=== PATIENT | female | born 1960 | race Two or more races ===

== ENCOUNTER 2024-08-04 12:03 | Inpatient (IN) | payer MEDICAID, OTHER ==
[~2024-08-04] VITALS: Ht 152.4 cm; Wt 67.2 kg
[~2024-08-04 12:03] MED LIST: BENA10TA90 PO; BUPR100T16 PO; CIPR500T4 PO; CLOP75TA70 PO; HYDR-1917 PO; HYDR25TA4 PO; OMEP20TA44 PO; SIMV20TA20 PO; SUCR1TAB31 PO
--- NOTE | 2024-08-04 12:23 | ECG ---
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
--- NOTE | 2024-08-04 12:25 | ED.PDOC ---
HPI (NEURO) HPI Comments HPI: Initial Vital Signs: Temp : BP: 179/92 HR: 61 RR: 16 SpO2: 99% Past Medical History: HTN, HLD, CVA, TIA Past Surgical History: Appendectomy, Tonsillectomy, Hysterectomy Social History: Occasional ETOH use. Denies smoking or drug use. Medications: Plavix, HTN medication Allergies: NKDA HPI: Poor Historian. 63-year-old female presents to emergency depart for evaluation left upper extremity numbness and tingling that became left upper extremity heaviness with the associated left shoulder left neck jaw area numbness. Onset of symptoms at 11:00 a.m. today. Patient states similar symptoms with previous strokes. She took her dose of Plavix this morning. Denies any recent fall or trauma. She took her blood pressure medications as well. Patient was slightly hypertensive here in the ED. REVIEW OF SYSTEMS: CONSTITUTIONAL: Denies acute: fever, diaphoresis, chills, generalized weakness. HEAD: Denies acute: headache, photophobia Eyes: Denies acute: Double vision, vision loss, eye pain, eye discharge. EARS: Denies acute: tinnitus, hearing loss, ear discharge, ear pain, THROAT: Denies acute: sore throat, swelling, difficulty swallowing , pain with swallowing, change in voice. NECK: Denies acute: neck pain, neck swelling, stiff neck. HEART: Denies acute : palpitations, LUNGS: Denies acute: SOB, wheezing, cough, hemoptysis ABDOMEN: Denies acute: abdominal pain, Nausea, Vomiting, diarrhea, melena , hematemesis, hematochezia SKIN: Denies acute: rash, redness, lesions, itchiness. EXTREMITIES: Denies acute: calf pain, Denies acute: Low back pain. Neuro: Denies acute: tremors, seizure like activity, confusion, dizziness, change in mental status, loss of bowel or bladder function, cauda equina like symptoms. : Denies acute: dysuria, hematuria, flank pain, increase in urinary frequency. PSYCH: Denies acute: hallucination, suicidal ideation, homicidal ideation. FEMALE: Denies acute: abnormal vaginal bleeding, foul odor, unusual discharge. PHYSICAL EXAM: General: no acute distress, awake and alert. Head: normocephalic, atraumatic. Neck: supple, trachea is midline, no swelling. Throat: Normal phonation. Eyes:, no erythema, no purulent discharge, no proptosis, no icterus. Heart: regular rate, regular rhythm, no significant murmur appreciated. Lungs: no apparent respiratory distress, Able to speak in full sentences. No wheezing, no rhonchi, no crackles. No stridors Clear to auscultation bilaterally. Abdomen: non tender to palpation, non distended, soft, no guarding, no rebound, + bowel sounds. Neuro: Awake, Alert, oriented to name, self, situation, follows commands GCS=15. Speech is normal. Skin: no petechia, no purpura, no cyanosis, non-pale, not jaundice. Lower extremities: --no - Pitting edema no deformity, no focal swelling, no calf TTP. Makes eye contact. moves all four extremities. Face: no apparent facial droop. Ears: Normal appearing TM b/l, Stroke: finger to nose cerebellar is sluggish on the left upper extremity. No pronator drift. 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 No nuchal rigidity, Kernig's sign, Brudzinski's sign, no meningeal signs. ED COURSE: Chief Complaint: Left Sided Weakness Time Seen by MD: 12:24 Reviewed Notes: Medications, Allergies Information Source: Patient Mode of Arrival: Ambulatory Was a procedure done? Was a procedure done?: No Differential Diagnosis (SZ) Seizure: N/A CVA: Other (Stroke: DDX include TIA, TGA, CVA, intracranial bleed/mass/infection, cerebellar ischemia/infarct, carotid stenosis, lacunar infarct, vertebral/carotid artery dissection,, vertebrobasillary insufficiency, BPV, encephalopathy, electrolyte abnormality, thyroid disease, hydrocephalus, [place] palsy, multiple sclerosis, hypoglycemia, drug toxicity, cardiac arrhythmia, todds paralysis, seizure.) X-Ray, Labs, Meds, VS Vital Signs Date Time Temp Pulse Resp B/P (MAP) Pulse Ox O2 Delivery O2 Flow Rate FiO2 08/04/24 12:35 98.0 68 12 160/86 (110) 97 98.0 08/04/24 12:35 68 12 97 Room Air* 0 21 08/04/24 12:23 98.1 61 16 179/92 (121) 99 08/04/24 12:16 70 Lab Test 08/04/24 14:16 08/04/24 12:49 08/04/24 12:20 Range/Units Troponin I High Sensitivity Pending < 3 L </=34 ng/L White Blood Count 6.2 4.4-10.8 10^3/uL Red Blood Count 4.86 4.0-5.20 10^6/uL Hemoglobin 15.1 12.2-16.2 g/dL Hematocrit 44.1 36.0-46.0 % Mean Corpuscular Volume 90.8 80.0-100.0 fL Mean Corpuscular Hemoglobin 31.1 28.0-32.0 pg Mean Corpuscular Hemoglobin Concent 34.2 32.0-36.0 g/dL Red Cell Distribution Width 13.3 11.8-14.3 % Platelet Count 253 140-450 10^3/uL Mean Platelet Volume 8.7 6.9-10.8 fL Neutrophils (%) (Auto) 58.3 37.0-80.0 % Lymphocytes (%) (Auto) 31.8 10.0-50.0 % Monocytes (%) (Auto) 7.4 0.0-12.0 % Eosinophils (%) (Auto) 1.7 0.0-7.0 % Basophils (%) (Auto) 0.8 0.0-2.0 % Neutrophils # (Auto) 3.6 1.6-8.6 10 ^3/uL Lymphocytes # (Auto) 2.0 0.4-5.4 10 ^3/uL Monocytes # (Auto) 0.5 0-1.3 10 ^3/uL Eosinophils # (Auto) 0.1 0-0.8 10 ^3/uL Basophils # (Auto) 0.1 0-0.2 10 ^3/uL Nucleated Red Blood Cells 0.2 % Prothrombin Time 10.4 9.3-11.8 sec Prothrombin Time INR 0.98 0.9-1.15 Activated Partial Thromboplast Time 28.5 24.5-34.5 SEC Sodium Level 139 136-145 mmol/L Potassium Level 3.6 3.5-5.1 mmol/L Chloride Level 101 98-107 mmol/L Carbon Dioxide Level 30 20-31 mmol/L Anion Gap 8 5-15 Blood Urea Nitrogen 17 9-23 mg/dL Creatinine 0.94 0.550-1.02 mg/dL Glomerular Filtration Rate Calc 68 >90 mL/min BUN/Creatinine Ratio 18.1 10.0-20.0 Serum Glucose 109 H 74-106 mg/dL Calcium Level 10.7 H 8.7-10.4 mg/dL Magnesium Level 2.2 1.6-2.6 mg/dL Total Bilirubin 0.8 0.2-1.0 mg/dL Aspartate Amino Transferase (AST) 20 13-40 U/L Alanine Aminotransferase (ALT) 26 7-40 U/L Alkaline Phosphatase 87 46-116 U/L B-Type Natriuretic Peptide 4.09 0-100 pg/mL Total Protein 7.1 5.7-8.2 g/dL Albumin 4.8 3.2-4.8 g/dL POC Glucose 108 H 70-106 mg/dl Current Medications Medications (Trade) Dose Ordered Sig/Kathia Route Start Time Stop Time Status Last Admin Aspirin (Ecotrin Enteric Coated Tablet) 325 mg ONCE ONCE PO 08/04/24 13:45 08/04/24 13:46 DC 08/04/24 15:00 [place] [address] Ph: [phone] DIAGNOSTIC IMAGING Diagnostic Imaging Report : [id number] Signed PATIENT: NEWTON NIÑO ACCT: [id number] UNIT: [id number] : 1960 LOC: ER ROOM / BED: / AGE / SEX: 63 / F ADM STATUS: REG ER SERVICE 1218 ORDERING PHYSICIAN: SUREHS LANDIS DO PROCEDURE(s): CTH - STROKE CTH REASON: R/O stroke ORDER NUMBER(s): [id number], ACCESSION NUMBER(s): [id number] EXAM: CT STROKE CTH INDICATION: R/O stroke TECHNIQUE: CT of the head without intravenous contrast. Radiation Dose : 1. Head: CT Dose: CTDI volume is 53.7 mGy. Dose-length product is 862.63 mGy*cm The dose indicators for CT are the volume Computed Tomography (CT) Dose Index (CTDIvol) and the Dose Length Product (DLP), and are measured in units of mGy and mGy-cm, respectively. These indicators are not patient dose, but values generated from the CT scanner acquisition factors. The report includes radiation exposure data for exposures received during this examination. COMPARISON: None FINDINGS: There is no evidence of acute intracranial hemorrhage, extra-axial collection, mass effect, midline shift, herniation or hydrocephalus. The ventricles, sulci and cisterns are age appropriate. The connor-white differentiation is intact. Patchy periventricular and subcortical white matter hypoattenuation is nonspecific but may be related to small vessel ischemic disease. The visualized paranasal sinuses and mastoid air cells are clear. The surrounding soft tissues and osseous structures are unremarkable. IMPRESSION: 1. No acute intracranial abnormality. Radiation optimization: All CT scans at this facility use at least one of these dose optimization techniques: automated exposure control mA and/or kV adjustment per patient size (includes targeted exams where dose is matched to clinical indication) or iterative reconstruction. ATED BY: SUKHI ZAMORA MD DICTATED DATE/TIME: 08/04/24 1251 SIGNED BY: SUKHI ZAMORA MD SIGNED DATE/TIME: 08/04/24 1251 CC: [place] [address] Ph: [phone] DIAGNOSTIC IMAGING Diagnostic Imaging Report : [id number] Signed PATIENT: NEWTON NIÑO ACCT: [id number] UNIT: [id number] : 1960 LOC: ER ROOM / BED: / AGE / SEX: 63 / F ADM STATUS: REG ER SERVICE 1218 ORDERING PHYSICIAN: SURESH LANDIS DO PROCEDURE(s): CXR1 - CHEST XRAY 1 VIEW REASON: stroke ORDER NUMBER(s): [id number], ACCESSION NUMBER(s): [id number] CHEST RADIOGRAPH Indication: stroke Technique: Single frontal view of the chest was obtained COMPARISON: None FINDINGS: Lines and Tubes: None Lungs: Clear Pleura: No effusion. No pneumothorax. Cardiomediastinal contours: Unremarkable Bones: Unremarkable IMPRESSION: 1. No acute disease. ATED BY: SUKHI ZAMORA MD DICTATED DATE/TIME: 08/04/24 1238 SIGNED BY: SUKHI ZAMORA MD SIGNED DATE/TIME: 08/04/248 CC: [address] [address] Ph: [phone] DIAGNOSTIC IMAGING Diagnostic Imaging Report : [id number] Signed PATIENT: NEWTON NIÑO ACCT: [id number] UNIT: [id number] : 1960 LOC: ER ROOM / BED: / AGE / SEX: 63 / F ADM STATUS: REG ER SERVICE ORDERING PHYSICIAN: SURESH LANDIS DO PROCEDURE(s): [place] - ANGIO HEAD/Neck REASON: cva ORDER NUMBER(s): [id number], ACCESSION NUMBER(s): [id number] INDICATION: cva COMPARISON: None TECHNIQUE: CTA head without and with intravenous contrast. CTA neck with intravenous contrast. 3D image postprocessing was performed on a dedicated workstation and images were used for interpretation and reporting. Radiation Dose Information: CT Dose: CTDI volume is 41 mGy. Dose-length product is 748 mGy*cm FINDINGS: CT head: There is no evidence of acute intracranial hemorrhage, extra-axial collection, mass effect, midline shift, herniation or hydrocephalus. The ventricles, sulci and cisterns are age appropriate. The connor-white differentiation is intact. The visualized paranasal sinuses and mastoid air cells are clear. The surrounding soft tissues and osseous structures are unremarkable. CTA head: There is normal enhancement of the visualized distal internal carotid, anterior and middle cerebral arteries. There is a normal anterior communicating artery complex. There are bilateral posterior communicating arteries. The vertebral, basilar, cerebellar and posterior cerebral arteries are within normal limits. The early parenchymal enhancement is grossly unremarkable. The visualized intracranial venous structures are grossly unremarkable. CTA neck: The visualized thoracic aortic arch and proximal great vessels are unremarkable. The left common, internal and external carotid arteries are within normal limits. The right common, internal and external carotid arteries are within normal limits. The cervical segments of the right and left vertebral arteries are within normal limits. The limited visualized lung apices are clear. The surrounding soft tissues and osseous structures are otherwise unremarkable. IMPRESSION: 1. No evidence of acute intracranial hemorrhage, mass effect or hydrocephalus. 2. No evidence of hemodynamically significant intracranial stenosis, proximal occlusion or aneurysm. 3. No evidence of hemodynamically significant cervical stenosis or dissection. All CT scans at this medical facility are performed using dose modulation techniques as appropriate to a performed exam including the following: Automated exposure control was utilized; adjustment of the MA and/or KV according to patient size; and use of iterative reconstruction technique. ATED BY: SUKHI ZAMORA MD DICTATED DATE/TIME: 08/04/241318 SIGNED BY: SUKHI ZAMORA MD SIGNED DATE/TIME: 08/04/241318 CC: Time of 1ST Reevaluation: 12:31 (Case discussed with neurologist on the phone. She will evaluate the patient on the camera and call me back.) Reevaluation 1ST: Unchanged Time of 2ND Reevaluation: 12:50 (Neurologist evaluated the patient and called me back. She said patient denies score at most is two. She discussed anticoagulation with the patient and at this point they do not want any thrombolytics. Neurologist stated that if patient's CT head and CT angio are unremarkable to give the patient a 325 mg aspirin and admit for stroke workup and tomorrow start Plavix 75 mg and aspirin 25 mg in the morning. Also allow for permissive hypertension. ) Patient Education/Counseling: Diagnosis, Treatment Family Education/Counseling: No Family Present Comments Patient presented with the above HPI.---stroke-like symptoms---workup was initiated. patient was found with the above mentioned diagnosis. the following medications were ordered: please refer to order lists of meds and tests obtained by myself Dr. Landis. Patient ED course and VS have been stabilized. Patient has been reassessed in the ED and remained in a stable condition. Pertinent incidental findings were discussed with the patient and/or family. Patient/family voices understanding and is agreeable with plan. Patient has been observed in the ED adequate length of time to insure improvement/stability. Escalation of care considered: Consideration of escalation to observation or admission Stroke protocol was initiated immediately. Neurology consulted. Patient was ADMITTED to the medicine team for further evaluation and treatment of their presentation. All the reports of any imaging studies that were ordered by myself were reviewed by myself. Departure 1 Departure Time of Disposition: 12:30 Impression: Primary Impression: CVA (cerebral vascular accident) Disposition: 09 ADMITTED INPATIENT Admit to: Tele Condition: Guarded Discharged With: Self Critical Care Note Critical Care Time?: Yes (1 hr-critical care time only) Heart Score Heart Score: Heart Score Response (Comments) Value History Moderate Suspicious 1 EKG Normal 0 Age 45-64 1 Risk Factors >3 or Hx ASHD 2 Troponin Normal limit 0 Total 4 I personally scribed for SURESH LANDIS DO ([email or web address]) on 08/04/24 at 12:25. Electronically submitted by Andres Mensah ([email or web address]). I personally scribed for SURESH LANDIS DO ([email or web address]) on 08/04/24 at 13:05. Electronically submitted by Andres Mensah ([email or web address]). I personally scribed for SURESH LANDIS DO ([email or web address]) on 08/04/24 at 13:41. Electronically submitted by Andres Mensah ([email or web address]). SURESH LANDIS DO Aug 04, 2024 12:25
[2024-08-04 12:35] VITALS: PULSE 68; RESP 12; O2SAT 97
--- NOTE | 2024-08-04 12:40 | DVH ---
CHEST RADIOGRAPH Indication: stroke Technique: Single frontal view of the chest was obtained COMPARISON: None FINDINGS: Lines and Tubes: None Lungs: Clear Pleura: No effusion. No pneumothorax. Cardiomediastinal contours: Unremarkable Bones: Unremarkable IMPRESSION: 1. No acute disease.
--- NOTE | 2024-08-04 12:54 | DVH ---
EXAM: CT STROKE CTH INDICATION: R/O stroke TECHNIQUE: CT of the head without intravenous contrast. Radiation Dose : 1. Head: CT Dose: CTDI volume is 53.7 mGy. Dose-length product is 862.63 mGy*cm The dose indicators for CT are the volume Computed Tomography (CT) Dose Index (CTDIvol) and the Dose Length Product (DLP), and are measured in units of mGy and mGy-cm, respectively. These indicators are not patient dose, but values generated from the CT scanner acquisition factors. The report includes radiation exposure data for exposures received during this examination. COMPARISON: None FINDINGS: There is no evidence of acute intracranial hemorrhage, extra-axial collection, mass effect, midline s hift, herniation or hydrocephalus. The ventricles, sulci and cisterns are age appropriate. The connor-white differentiation is intact. Patchy periventricular and subcortical white matter hypoattenuation is nonspecific but may be related to small vessel ischemic disease. The visualized paranasal sinuses and mastoid air cells are clear. The surrounding soft tissues and osseous structures are unremarkable. IMPRESSION: 1. No acute intracranial abnormality. Radiation optimization: All CT scans at this facility use at least one of these dose optimization danita hniques: automated exposure control mA and/or kV adjustment per patient size (includes targeted exam s where dose is matched to clinical indication) or iterative reconstruction.
[2024-08-04] MEDS ORDERED: IOHEXOL 350 MG/ML 100ML IJ ONE (12:55)
--- NOTE | 2024-08-04 13:00 | DVHINCON2 ---
Date of Consultation Date Date: 08/04/24 History of Present Illness History of Present Illness [place] [facility] Note # Demographics Consult Type: Acute Stroke Level 1 (0-4.5 hrs) Patient Location: Emergency Room First Name: bess Last Name: ramya Date of : 1960 Age: 63 Gender: Female Facility: [facility] Time of Initial Page (): 08/04/2024 12:21 Time of Return Call (): 08/04/2024 12:22 # HPI History: 63yof with previous stroke (on plavix), HTN, HLD who p/w L weakness and numbness. Symptoms currently improving mildly. Has very mild drift in LUE and LLE weakness on exam. Last Known Normal: - I have collected independent history specific to time last normal or last known well. We have collaborated with the provider and at this time, we have the most current timeline with the information that is available. 10:50AM # Scores Time of exam and NIHSS (): 08/04/2024 12:38 Level of Consciousness 1a: [0] = Alert; keenly responsive LOC Questions 1b: [0] = Answers both questions correctly LOC Commands 1c: [0] = Performs both tasks correctly Best Gaze 2: [0] = Normal Visual 3: [0] = No visual loss Facial Palsy 4: [0] = Normal symmetrical movements Motor Arm Left 5a: [1] = Drift Motor Arm Right 5b: [0] = No drift Motor Leg Left 6a: [1] = Drift Motor Leg Right 6b: [0] = No drift Limb Ataxia 7: [0] = Absent Sensory 8: [0] = Normal Best Language 9: [0] = No aphasia Dysarthria 10: [0] = Normal Extinction and Inattention 11: [0] = No abnormality NIHSS Total: 2 # Data Time Head CT personally read by me (): 08/04/2024 12:[address]: - no bleed - preliminarily reviewed by me, please refer to radiology read for official reading # Assessment Impression: In patients presenting with high risk TIA or minor stroke, treatment for 21 days with dual antiplatelet therapy (aspirin and plavix) begun within 24 hours can be beneficial for early secondary stroke prevention (CHANCE 2013, POINT 2018). # Plan Thrombolytic/Intervention: Possible IA candidate Thrombolytic Exclusion (< 3 hour window): - Individualized disability discussion had with the patient and/or family, and they have determined the current deficits to be non-disabling and do not wish to proceed with thrombolytic Possible IA Candidate: - CTA pending - If CTA shows large vessel occlusion, notify neurology and/or neuro- interventional team, per hospital protocol. Target Blood Pressure: - SBP < 220 - DBP < 120 Labs: - lipid panel - hemoglobin A1c - CBC - basic metabolic panel - urine drug screen - troponin Imaging: (urgency: STAT): - CT Angiogram Head and CT Angiogram Neck AND call back with results if abnormal Imaging: (urgency: routine): - MRI Brain without contrast Diagnostic Test: - echo with bubble study Therapy/Evaluation: - PT/OT evaluation - speech/swallow consultation Medication: - start statin with goal of LDL < 70 - aspirin 81 mg PLUS clopidogrel (Plavix) 75 mg for 21 days, then monotherapy therafter Other: - If patient has any neurological deterioration please call me back immediately - permissive hypertension - telemetry monitoring - LDL < 70 - I have discussed my recommendations with the referring provider - provide smoking cessation resources and counseling to patient Additional Recommendations: - Permissive HTN for next 24-48 hours, then gradual control by no more than 15% daily monitoring for neurological stability - Avoid dehydration and relative hypotension - Risk factor modification, including smoking cessation and alcohol moderation if appropriate - Monitor glucose and correct as needed - If cryptogenic non-lacunar stroke on MRI, obtain outpatient cardiac monitoring for a fib # Logistics Attestation of consult completion: The patient is located at: [facility]. Facility staff participated in the visit. I performed this telemedicine visit from my offsite office utilizing interactive 2 way audio and visual telecommunication technology. Total time spent in telemedicine encounter: I spent 26 minutes reviewing clinical data and/or imaging, obtaining history, examining the patient, communicating with the onsite care team, and in preparation of this report. # Demographics First Name: bess Last Name: ramya Facility: [facility] Allergies: Coded Allergies: NO KNOWN ALLERGIES (Unverified , 11/10/13) Home Meds Reported Medications Clopidogrel Bisulfate (CLOPIDOGREL) 75 Mg Tab, 75 MG PO DAILY, MG 11/10/13 Benazepril Hcl (Benazepril Hcl) 10 Mg Tab, 10 MG PO BID, TAB 5/31/14 Simvastatin (Simvastatin) 20 Mg Tab, 20 MG PO DAILY, TAB 11/10/13 Bupropion Hcl (Bupropion Hcl Er) 100 Mg Tab, 100 MG PO BID, TAB 11/10/13 Omeprazole (Cvs Omeprazole) 20 Mg Tab, 20 MG PO QAM, TAB 11/10/13 Hydrocodone Bitartrate (Hydrocodone Bitartrate) Bitartra Pow, 10 MG PO PRN for Q6, POW 11/10/13 Hydrochlorothiazide (Hydrochlorothiazide) 25 Mg Tab, 25 MG PO DAILY, TAB 11/10/13 Sucralfate (CARAFATE) 1 Gm Tab, 1 GM PO BID, TAB 11/10/13 Ciprofloxacin Hcl (Ciprofloxacin Hcl) 500 Mg Tab, 500 MG PO Q12HR, MG 11/10/13 Physical Examination General Examination: Last Vital sign Vital Signs Date Time Temp Pulse Resp B/P (MAP) Pulse Ox O2 Delivery O2 Flow Rate FiO2 08/04/24 12:35 98.0 68 12 160/86 (110) 97 98.0 08/04/24 12:35 Room Air* 0 21 General: General: No apparent distress, appears comfortable. Cooperative. Neurological Examination: Neurological Examination: Mental Status: Cranial Nerves: Motor Examination: Reflexes: Sensory: Coordination: Gait: Labs: Labs: Laboratory Tests Test 08/04/24 12:20 Range/Units POC Glucose 108 H 70-106 mg/dl Assessment/Plan Assessment/Plan Assessment and Plan:Bess Alamo is a 63 year old female who presents with Plan discussed with: Patient ABBIE HOOKS MD Aug 04, 2024 13:00
--- NOTE | 2024-08-04 13:21 | DVH ---
INDICATION: cva COMPARISON: None TECHNIQUE: CTA head without and with intravenous contrast. CTA neck with intravenous contrast. 3D image postprocessing was performed on a dedicated workstation and images were used for interpretation and reporting. Radiation Dose Information: CT Dose: CTDI volume is 41 mGy. Dose-length product is 748 mGy*cm FINDINGS: CT head: There is no evidence of acute intracranial hemorrhage, extra-axial collection, mass effect, midline s hift, herniation or hydrocephalus. The ventricles, sulci and cisterns are age appropriate. The connor -white differentiation is intact. The visualized paranasal sinuses and mastoid air cells are clear. The surrounding soft tissues and osseous structures are unremarkable. CTA head: There is normal enhancement of the visualized distal internal carotid, anterior and middle cerebral a rteries. There is a normal anterior communicating artery complex. There are bilateral posterior com municating arteries. The vertebral, basilar, cerebellar and posterior cerebral arteries are within n ormal limits. The early parenchymal enhancement is grossly unremarkable. The visualized intracrania l venous structures are grossly unremarkable. CTA neck: The visualized thoracic aortic arch and proximal great vessels are unremarkable. The left common, internal and external carotid arteries are within normal limits. The right common, internal and external carotid arteries are within normal limits. The cervical segments of the right and left vertebral arteries are within normal limits. The limited visualized lung apices are clear. The surrounding soft tissues and osseous structures ar e otherwise unremarkable. IMPRESSION: 1. No evidence of acute intracranial hemorrhage, mass effect or hydrocephalus. 2. No evidence of hemodynamically significant intracranial stenosis, proximal occlusion or aneurysm. 3. No evidence of hemodynamically significant cervical stenosis or dissection. All CT scans at this medical facility are performed using dose modulation techniques as appropriate t o a performed exam including the following: Automated exposure control was utilized; adjustment of th e MA and/or KV according to patient size; and use of iterative reconstruction technique.
[2024-08-04 13:50] LABS: Basophils # (auto) 0.1 10 ^3/uL (0-0.2); Basophils % (auto) 0.8 % (0.0-2.0); Eosinophils # (auto) 0.1 10 ^3/uL (0-0.8); Eosinophils % (auto) 1.7 % (0.0-7.0); Hematocrit 44.1 % (36.0-46.0); Hemoglobin 15.1 g/dL (12.2-16.2); Lymphocytes % (auto) 31.8 % (10.0-50.0); Mean Corpuscular Hemoglobin 31.1 pg (28.0-32.0); Mean Corpuscular Hgb Conc. 34.2 g/dL (32.0-36.0); Mean Corpuscular Volume 90.8 fL (80.0-100.0); Monocytes # (auto) 0.5 10 ^3/uL (0-1.3); Monocytes % (auto) 7.4 % (0.0-12.0); Neutrophils # (auto) 3.6 10 ^3/uL (1.6-8.6); Neutrophils % (auto) 58.3 % (37.0-80.0); Nucleated Red Blood Cells % 0.2 %; Platelet Count (auto) 253 10^3/uL (140-450); Red Blood Cells 4.86 10^6/uL (4.0-5.20); Red Cell Distribution Width 13.3 % (11.8-14.3); White Blood Cell 6.2 10^3/uL (4.4-10.8)
[2024-08-04 14:00] LABS: INR 0.98 (0.9-1.15); Partial Thromboplastin Time 28.5 SEC (24.5-34.5); Prothrombin Time 10.4 sec (9.3-11.8)
[2024-08-04 14:18] LABS: Alanine Aminotransferase 26 U/L (7-40); Alkaline Phosphatase 87 U/L (46-116); Anion Gap 8 (5-15); Aspartate Aminotransferase 20 U/L (13-40); BUN/Creatinine Ratio 18.1 (10.0-20.0); Blood Urea Nitrogen 17 mg/dL (9-23); Carbon Dioxide 30 mmol/L (20-31); Chloride 101 mmol/L (98-107); Magnesium 2.2 mg/dL (1.6-2.6); Potassium 3.6 mmol/L (3.5-5.1); Sodium 139 mmol/L (136-145)
[2024-08-04 14:19] LABS: Albumin 4.8 g/dL (3.2-4.8); Bilirubin, Total 0.8 mg/dL (0.2-1.0); Calcium 10.7 mg/dL (8.7-10.4); Glucose 109 mg/dL (74-106); Total Protein 7.1 g/dL (5.7-8.2)
[2024-08-04] MEDS: ASPirin-EC 325mg tab PO ONE (15:00)
[2024-08-04] MEDS ORDERED: MORPHINE SULFATE INJ 2 MG/ml SYRG IV PRN (15:15)
[2024-08-04] MEDS ORDERED: ONDANSETRON HCL 4 MG/2 ML VIAL IV PRN (15:15)
[2024-08-04] MEDS ORDERED: hydrALAZINE HCL 20 MG/ML VL IV PRN (15:15)
[2024-08-04] MEDS ORDERED: ACETAMINOPHEN 325 MG TAB PO PRN (15:15)
[2024-08-04] MEDS ORDERED: NITROGLYCERIN 0.4 MG SL TAB SL PRN (15:15)
[2024-08-04 15:30] LABS: Urine Bacteria None Seen /hpf (None Seen)
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
[2024-08-04 15:53] LABS: Urine Blood TRACE /uL (Negative); Urine Clarity Clear (Clear); Urine Color Light-Yellow (Yellow); Urine Protein, UAD Negative (Negative); Urine Specific Gravity 1.043 (1.001-1.035); Urine Squamous Epithelial Cell FEW /hpf (<5); Urine Urobilinogen Normal (Negative); Urine WBC 1 /HPF (0-5); Urine pH 6.5 (5.0-9.0)
--- NOTE | 2024-08-04 16:38 | DVH ---
Carotid Duplex Date: 08/04/2024 03:29 PM Clinical History: Left-sided weakness Comparison: None Technique: Duplex Doppler evaluation of the extracranial carotid and vertebral arteries including color Doppler and spectral/pulsed waveform analysis was performed. Findings: RIGHT SIDE: The peak systolic velocities are 72.4 cm/s in the distal CCA and 94.7 cm/s in the proximal ICA.The IC A/CCA ratio is less than 2. The external carotid artery is patent with peak systolic velocity of 6 the 3.1 cm/s proximally. There is appropriate antegrade flow in the right vertebral artery, 72 cm/s LEFT SIDE: The peak systolic velocities are 70.4 cm/s in the distal CCA and 106.2 cm/s in the proximal ICA.. Th e ICA/CCA ratio is less than 2. The external carotid artery is patent with peak systolic velocity of 37.6 cm/s proximally. There is appropriate antegrade flow in the left vertebral artery 57.8 cm/s. IMPRESSION: 1. No hemodynamically significant stenosis noted in the right carotid system. 2. No hemodynamically significant stenosis noted in the left carotid system. 3. Reference: Radiology 2003; 229:340-346
[2024-08-04 17:05] VITALS: BP 147/83; PULSE 66; RESP 16; TEMP 97.3; O2SAT 98
[2024-08-04 19:00] VITALS: BP 147/83; PULSE 66; RESP 16; TEMP 97.3; O2SAT 98
[2024-08-04 20:00] VITALS: PULSE 88; O2SAT 80
[2024-08-04 21:00] VITALS: BP 139/84; PULSE 78; RESP 18; TEMP 98.4; O2SAT 98
[2024-08-04] MEDS: ATORVASTATIN 20 MG TAB PO SCH (21:29)
[2024-08-04] MEDS: BUPROPION HCL 100 MG PO SCH (21:33)
[2024-08-04] MEDS: SUCRALFATE 1 GM TAB PO SCH (21:35)
[2024-08-04] MEDS: CIPROFLOXACIN HCL 500 MG TAB PO SCH (21:41)
[2024-08-05] VITALS (9 sets, daily range): BP systolic 103–159; BP diastolic 59–91; PULSE 71–90; RESP 15–20; TEMP 97.9–98.6; O2SAT 92–97
[2024-08-05] MEDS: PANTOPRAZOLE 40 MG TAB PO SCH (05:50)
[2024-08-05 07:22] LABS: Basophils # (auto) 0 10 ^3/uL (0-0.2); Basophils % (auto) 0.6 % (0.0-2.0); Eosinophils # (auto) 0.1 10 ^3/uL (0-0.8); Eosinophils % (auto) 1.4 % (0.0-7.0); Hematocrit 43.3 % (36.0-46.0); Hemoglobin 14.5 g/dL (12.2-16.2); Lymphocytes # (auto) 1.8 10 ^3/uL (0.4-5.4); Lymphocytes % (auto) 29.3 % (10.0-50.0); Mean Corpuscular Hemoglobin 30.3 pg (28.0-32.0); Mean Corpuscular Hgb Conc. 33.5 g/dL (32.0-36.0); Mean Corpuscular Volume 90.6 fL (80.0-100.0); Monocytes # (auto) 0.5 10 ^3/uL (0-1.3); Monocytes % (auto) 7.9 % (0.0-12.0); Neutrophils # (auto) 3.6 10 ^3/uL (1.6-8.6); Neutrophils % (auto) 60.8 % (37.0-80.0); Nucleated Red Blood Cells % 0.1 %; Platelet Count (auto) 244 10^3/uL (140-450); Red Blood Cells 4.78 10^6/uL (4.0-5.20); Red Cell Distribution Width 13.5 % (11.8-14.3)
[2024-08-05 07:45] LABS: Alanine Aminotransferase 20 U/L (7-40); Albumin 4.5 g/dL (3.2-4.8); Alkaline Phosphatase 72 U/L (46-116); Anion Gap 12 (5-15); Aspartate Aminotransferase 17 U/L (13-40); BUN/Creatinine Ratio 17.2 (10.0-20.0); Blood Urea Nitrogen 15 mg/dL (9-23); Calcium 9.9 mg/dL (8.7-10.4); Carbon Dioxide 27 mmol/L (20-31); Chloride 101 mmol/L (98-107); Sodium 140 mmol/L (136-145)
[2024-08-05 07:46] LABS: Bilirubin, Total 0.8 mg/dL (0.2-1.0); Total Protein 6.9 g/dL (5.7-8.2)
[2024-08-05 07:59] LABS: Glucose 127 mg/dL (74-106); Potassium 3.1 mmol/L (3.5-5.1)
[2024-08-05] MEDS: hydroCHLOROthiazide 25 MG TAB PO SCH (10:37)
[2024-08-05] MEDS: ASPirin 325 MG TAB PO SCH (10:38)
[2024-08-05] MEDS: CLOPIDOGREL BISULFATE 75 MG TAB PO SCH (10:38)
[2024-08-05] MEDS: ENOXAPARIN SOD 40 MG/0.4 ML SYRINGE SC SCH (10:39)
[2024-08-05] MEDS: POTASSIUM CHL 20MEQ/100ML 100 ML IV SCH (13:48)
--- NOTE | 2024-08-05 17:54 | DVH ---
EXAM: MRI BRAIN HEAD WO CONTRAST HISTORY: Rule out CVA COMPARISON: CT scan without IV contrast dated 08/04/2024 TECHNIQUE: MRI was performed utilizing multiple appropriate imaging planes and pulse sequences. FINDINGS: SUPRATENTORIAL REGION: No evidence for acute ischemia or intracranial hemorrhage. POSTERIOR FOSSA: Unremarkable. BRAINSTEM: Unremarkable. SELLAR/SUPRASELLAR REGION: Fluid-filled Sella with a diminutive pituitary gland noted. VENTRICLES, CISTERNS, SULCI: Age-appropriate. ORBITS: Unremarkable. PARANASAL SINUSES: Unremarkable. MASTOID AIR CELLS: Unremarkable. VASCULATURE: Unremarkable. BONES/ SOFT TISSUES: Unremarkable. OTHER: None. IMPRESSION: 1. No acute intracranial process identified. 2. Mild chronic microvascular ischemic changes. 3. Empty Sella Syndrome, commonly an incidental finding of no clinical significance but there exists a well-established association with idiopathic intracranial hypertension. Correlate clinically.
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
[2024-08-05] MEDS: ATORVASTATIN 20 MG TAB PO SCH (21:42)
[2024-08-06 01:00] VITALS: BP 117/91; PULSE 91; RESP 20; TEMP 97.7; O2SAT 96
[2024-08-06 05:00] VITALS: BP 138/81; PULSE 71; RESP 20; TEMP 97.9; O2SAT 93
[2024-08-06 08:00] VITALS: PULSE 71
[2024-08-06 08:04] LABS: Basophils # (auto) 0 10 ^3/uL (0-0.2); Basophils % (auto) 0.8 % (0.0-2.0); Eosinophils # (auto) 0.1 10 ^3/uL (0-0.8); Eosinophils % (auto) 2.3 % (0.0-7.0); Hematocrit 40.9 % (36.0-46.0); Hemoglobin 13.7 g/dL (12.2-16.2); Lymphocytes # (auto) 2.1 10 ^3/uL (0.4-5.4); Lymphocytes % (auto) 34.4 % (10.0-50.0); Mean Corpuscular Hemoglobin 30.8 pg (28.0-32.0); Mean Corpuscular Hgb Conc. 33.6 g/dL (32.0-36.0); Mean Corpuscular Volume 91.8 fL (80.0-100.0); Monocytes # (auto) 0.4 10 ^3/uL (0-1.3); Monocytes % (auto) 6.7 % (0.0-12.0); Neutrophils # (auto) 3.4 10 ^3/uL (1.6-8.6); Neutrophils % (auto) 55.8 % (37.0-80.0); Nucleated Red Blood Cells % 0.1 %; Platelet Count (auto) 233 10^3/uL (140-450); Red Blood Cells 4.46 10^6/uL (4.0-5.20); Red Cell Distribution Width 13.3 % (11.8-14.3); White Blood Cell 6.2 10^3/uL (4.4-10.8)
[2024-08-06 08:13] LABS: Anion Gap 7 (5-15); Carbon Dioxide 27 mmol/L (20-31); Sodium 142 mmol/L (136-145)
[2024-08-06 08:14] LABS: Calcium 9.6 mg/dL (8.7-10.4)
[2024-08-06 08:20] LABS: BUN/Creatinine Ratio 13.9 (10.0-20.0); Blood Urea Nitrogen 11 mg/dL (9-23)
[2024-08-06 08:21] LABS: Cholesterol 178 mg/dL (< 200); HDL Cholesterol 48 mg/dL (40-59)
[2024-08-06 08:30] LABS: Chloride 108 mmol/L (98-107); Glucose 124 mg/dL (74-106); LDL Cholesterol 106 mg/dL (< 100); Triglycerides 155 mg/dL (< 150)
[2024-08-06 08:45] VITALS: BP 141/87; PULSE 82; RESP 16; TEMP 97.9; O2SAT 97
[2024-08-06] MEDS: ASPirin 81 mg TAB PO SCH (09:06)
[2024-08-06 13:00] VITALS: BP 143/101; PULSE 85; RESP 18; TEMP 97.8; O2SAT 95
[2024-08-06] MEDS ORDERED: SUCR1TAB PO (13:05)
[2024-08-06] MEDS ORDERED: ACET-1882 PO (13:05)
[2024-08-06] MEDS ORDERED: ASPI-325 PO (13:05)
[2024-08-06] MEDS ORDERED: PANT40T PO (13:05)
[2024-08-06] MEDS ORDERED: ATOR20TA50 PO (13:05)
--- NOTE | 2024-08-06 19:22 | DVHDSRES ---
Discharge Summary Date of Admission Resident Creating Document: COREY POLLOCK RESIDENT Aug 04, 2024 at 15:01 Date of Discharge: Aug 06, 2024 Labs/Diagnostic Data: Laboratory Results Test 08/06/24 07:17 08/05/24 06:03 08/04/24 16:37 08/04/24 15:05 White Blood Count 6.2 10^3/uL (4.4-10.8) Red Blood Count 4.46 10^6/uL (4.0-5.20) Hemoglobin 13.7 g/dL (12.2-16.2) Hematocrit 40.9 % (36.0-46.0) Mean Corpuscular Volume 91.8 fL (80.0-100.0) Mean Corpuscular Hemoglobin 30.8 pg (28.0-32.0) Mean Corpuscular Hemoglobin Concent 33.6 g/dL (32.0-36.0) Red Cell Distribution Width 13.3 % (11.8-14.3) Platelet Count 233 10^3/uL (140-450) Mean Platelet Volume 8.7 fL (6.9-10.8) Neutrophils (%) (Auto) 55.8 % (37.0-80.0) Lymphocytes (%) (Auto) 34.4 % (10.0-50.0) Monocytes (%) (Auto) 6.7 % (0.0-12.0) Eosinophils (%) (Auto) 2.3 % (0.0-7.0) Basophils (%) (Auto) 0.8 % (0.0-2.0) Neutrophils # (Auto) 3.4 10 ^3/uL (1.6-8.6) Lymphocytes # (Auto) 2.1 10 ^3/uL (0.4-5.4) Monocytes # (Auto) 0.4 10 ^3/uL (0-1.3) Eosinophils # (Auto) 0.1 10 ^3/uL (0-0.8) Basophils # (Auto) 0 10 ^3/uL (0-0.2) Nucleated Red Blood Cells 0.1 % Sodium Level 142 mmol/L (136-145) Potassium Level 4.0 mmol/L (3.5-5.1) Chloride Level 108 mmol/L (98-107) Carbon Dioxide Level 27 mmol/L (20-31) Anion Gap 7 (5-15) Blood Urea Nitrogen 11 mg/dL (9-23) Creatinine 0.79 mg/dL (0.550-1.02) Glomerular Filtration Rate Calc 83 mL/min (>90) BUN/Creatinine Ratio 13.9 (10.0-20.0) Serum Glucose 124 mg/dL (74-106) Hemoglobin A1c 6.4 % A1C (<5.7) Calcium Level 9.6 mg/dL (8.7-10.4) Phosphorus Level 3.0 mg/dL (2.4-5.1) Magnesium Level 2.0 mg/dL (1.6-2.6) Triglycerides Level 155 mg/dL (< 150) Cholesterol Level 178 mg/dL (< 200) LDL Cholesterol 106 mg/dL (< 100) HDL Cholesterol 48 mg/dL (40-59) Vitamin B12 Level 498 pg/mL (211-911) Vitamin D 25-Hydroxy 31.7 ng/mL (30.0-100) Thyroid Stimulating Hormone (TSH) 2.33 uIU/mL (0.55-4.78) Total Bilirubin 0.8 mg/dL (0.2-1.0) Aspartate Amino Transferase (AST) 17 U/L (13-40) Alanine Aminotransferase (ALT) 20 U/L (7-40) Alkaline Phosphatase 72 U/L (46-116) Total Protein 6.9 g/dL (5.7-8.2) Albumin 4.5 g/dL (3.2-4.8) Troponin I High Sensitivity 3 ng/L (</=34) Urine Color Light-yellow (Yellow) Urine Clarity Clear (Clear) Urine pH 6.5 (5.0-9.0) Urine Specific [place] 1.043 (1.001-1.035) Urine Protein Negative (Negative) Urine Ketones Negative (Negative) Urine Blood Trace /uL (Negative) Urine Nitrite Negative (Negative) Urine Bilirubin Negative (Negative) Urine Urobilinogen Normal mg/dL (Negative) Urine Leukocyte Esterase Negative /uL (Negative) Urine RBC 2 /hpf (0 - 4) Urine Microscopic WBC 1 /HPF (0-5) Urine Squamous Epithelial Cells Few /hpf (<5) Urine Bacteria None seen /hpf (None Seen) Urine Glucose Normal mg/dL (Normal) Test 08/04/24 12:49 08/04/24 12:20 Prothrombin Time 10.4 sec (9.3-11.8) Prothrombin Time INR 0.98 (0.9-1.15) Activated Partial Thromboplast Time 28.5 SEC (24.5-34.5) B-Type Natriuretic Peptide 4.09 pg/mL (0-100) POC Glucose 108 mg/dl (70-106) Other Laboratory Tests 08/06/24 07:17 Brief Hx & Hospital Course: Bess Alamo is a 63-year-old female patient who presents to ED with chief complaint of retrosternal oppressive chest pain which radiates towards her left arm and jaw and is exacerbated when she moves her arms on lays down on her chest or left side, associated with headache, bilateral upper arm weakness predominantly in left side and tingling sensation. She reports being stress due to construction at her home. Symptoms started approximately 7 hours before her ER visit. Denies fever, chills, syncope, palpitation, history of trauma, dyspnea, nausea, vomiting, diarrhea, abdominal pain, dizziness, dysuria, sick contacts, recent travel and other motor or sensory deficits. Past medical history: Hypertension, dyslipidemia, CVA (stroke and TIA last one in 2019) Surgical History: Appendectomy, Hysterectomy, Tonsillectomy Family History: Noncontributory Social history: Lives with family in [place]. Denies current tobacco, alcohol and other drug abuse Allergies: Denies Home medication: Plavix 75 mg p.o. daily, hydrochlorothiazide 25 mg p.o. daily, simvastatin 20 mg p.o. daily, lisinopril 20 mg p.o. daily, metoprolol 25 mg p.o. daily Brief hospital course: Probable TIA, requiring on admission DAPT and high potency statins. Completed head CT and MRI which was negative for acute intracranial pathology (does evidence mild chronic microvascular ischemic changes, empty sella syndrome), CTA and carotid ultrasound ruled out significant stenosis of extracranial or intracranial vessel. Ruled out acute coronary syndrome on admission with EKG showed normal sinus rhythm at 70 beats per minute (artificial intelligence describes atrial fibrillation, but they are clear P waves in DII) with no significant ST alteration, troponin x3 negative, negative BNP, and echocardiogram preliminary has normal LVEF. Patient may benefit from event monitor due to multiple history of CVAs, may also benefit from eventual CHANTEL. Patient hemodynamically stable, asymptomatic, in condition to be discharged home. Was granted under optimal medical therapy (aspirin and clopidogrel at least 28 days, then continue with only aspirin and high potency statins), gave advice on healthy lifestyle habits, and follow-up as outpatient with PCP, neurologist, and hospice home health aide (evaluate eventual need for event monitor, or CHANTEL). Pending final report of echocardiogram. DIAGNOSIS # Probable TIA # Musculoskeletal pain - noncardiac # Ruled out acute coronary syndrome # Hypertension # Dyslipidemia # Empty sella syndrome Examination Patient lying in bed, in no acute distress General: Lucid, afebrile, mucosae are moist Cardiovascular: Normal S1 and S2. No murmurs, gallops or rubs Respiratory: Normal ventilation mechanics. Clear lung sounds on auscultation Abdomen: Soft, nontender, no organomegaly, normal bowel sounds MSK/skin: Mobilizes 4 limbs. Skin is dry and warm Neurological: Oriented in 3 spheres. No motor no sensitive deficits. Pupils are isocoric and reactive Goals of care discussed with patient for over 18 minutes: Full code status Discussed plan with Dr. Arroyo, patient, family and nurses Operations or Procedures CHEST RADIOGRAPH Indication: stroke Technique: Single frontal view of the chest was obtained COMPARISON: None FINDINGS: Lines and Tubes: None Lungs: Clear Pleura: No effusion. No pneumothorax. Cardiomediastinal contours: Unremarkable Bones: Unremarkable IMPRESSION: 1. No acute disease. ATED BY: SUKHI ZAMORA MD DICTATED DATE/TIME: 08/04/24 1238 EXAM: CT STROKE [facility] INDICATION: R/O stroke TECHNIQUE: CT of the head without intravenous contrast. Radiation Dose : 1. Head: CT Dose: CTDI volume is 53.7 mGy. Dose-length product is 862.63 mGy*cm The dose indicators for CT are the volume Computed Tomography (CT) Dose Index (CTDIvol) and the Dose Length Product (DLP), and are measured in units of mGy and mGy-cm, respectively. These indicators are not patient dose, but values generated from the CT scanner acquisition factors. The report includes radiation exposure data for exposures received during this examination. COMPARISON: None FINDINGS: There is no evidence of acute intracranial hemorrhage, extra-axial collection, mass effect, midline shift, herniation or hydrocephalus. The ventricles, sulci and cisterns are age appropriate. The connor-white differentiation is intact. Patchy periventricular and subcortical white matter hypoattenuation is nonspecific but may be related to small vessel ischemic disease. The visualized paranasal sinuses and mastoid air cells are clear. The surrounding soft tissues and osseous structures are unremarkable. IMPRESSION: 1. No acute intracranial abnormality. Radiation optimization: All CT scans at this facility use at least one of these dose optimization techniques: automated exposure control mA and/or kV adjustment per patient size (includes targeted exams where dose is matched to clinical indication) or iterative reconstruction. ATED BY: SUKHI ZAMORA MD DICTATED DATE/TIME: 08/04/24 1253 INDICATION: cva COMPARISON: None TECHNIQUE: CTA head without and with intravenous contrast. CTA neck with intravenous contrast. 3D image postprocessing was performed on a dedicated workstation and images were used for interpretation and reporting. Radiation Dose Information: CT Dose: CTDI volume is 41 mGy. Dose-length product is 748 mGy*cm FINDINGS: CT head: There is no evidence of acute intracranial hemorrhage, extra-axial collection, mass effect, midline shift, herniation or hydrocephalus. The ventricles, sulci and cisterns are age appropriate. The connor-white differentiation is intact. The visualized paranasal sinuses and mastoid air cells are clear. The surrounding soft tissues and osseous structures are unremarkable. CTA head: There is normal enhancement of the visualized distal internal carotid, anterior and middle cerebral arteries. There is a normal anterior communicating artery complex. There are bilateral posterior communicating arteries. The vertebral, basilar, cerebellar and posterior cerebral arteries are within normal limits. The early parenchymal enhancement is grossly unremarkable. The visualized intracranial venous structures are grossly unremarkable. CTA neck: The visualized thoracic aortic arch and proximal great vessels are unremarkable. The left common, internal and external carotid arteries are within normal limits. The right common, internal and external carotid arteries are within normal limits. The cervical segments of the right and left vertebral arteries are within normal limits. The limited visualized lung apices are clear. The surrounding soft tissues and osseous structures are otherwise unremarkable. IMPRESSION: 1. No evidence of acute intracranial hemorrhage, mass effect or hydrocephalus. 2. No evidence of hemodynamically significant intracranial stenosis, proximal occlusion or aneurysm. 3. No evidence of hemodynamically significant cervical stenosis or dissection. All CT scans at this medical facility are performed using dose modulation techniques as appropriate to a performed exam including the following: Automated exposure control was utilized; adjustment of the MA and/or KV according to patient size; and use of iterative reconstruction technique. ATED BY: SUKHI ZAMORA MD DICTATED DATE/TIME: 08/04/24 1319 Carotid Duplex Date: 08/04/2024 03:29 PM Clinical History: Left-sided weakness Comparison: None Technique: Duplex Doppler evaluation of the extracranial carotid and vertebral arteries including color Doppler and spectral/pulsed waveform analysis was performed. Findings: RIGHT SIDE: The peak systolic velocities are 72.4 cm/s in the distal CCA and 94.7 cm/s in the proximal ICA.The ICA/CCA ratio is less than 2. The external carotid artery is patent with peak systolic velocity of 6 the 3.1 cm/s proximally. There is appropriate antegrade flow in the right vertebral artery, 72 cm/s LEFT SIDE: The peak systolic velocities are 70.4 cm/s in the distal CCA and 106.2 cm/s in the proximal ICA.. The ICA/CCA ratio is less than 2. The external carotid artery is patent with peak systolic velocity of 37.6 cm/s proximally. There is appropriate antegrade flow in the left vertebral artery 57.8 cm/s. IMPRESSION: 1. No hemodynamically significant stenosis noted in the right carotid system. 2. No hemodynamically significant stenosis noted in the left carotid system. 3. Reference: Radiology 2003; [id number] ATED BY: SUKHI CONTRERAS Jr., DO DICTATED DATE/TIME: 08/04/24 1636 EXAM: MRI BRAIN HEAD WO CONTRAST HISTORY: Rule out CVA COMPARISON: CT scan without IV contrast dated 08/04/2024 TECHNIQUE: MRI was performed utilizing multiple appropriate imaging planes and pulse sequences. FINDINGS: SUPRATENTORIAL REGION: No evidence for acute ischemia or intracranial hemorrhage. POSTERIOR FOSSA: Unremarkable. BRAINSTEM: Unremarkable. SELLAR/SUPRASELLAR REGION: Fluid-filled Sella with a diminutive pituitary gland noted. VENTRICLES, CISTERNS, SULCI: Age-appropriate. ORBITS: Unremarkable. PARANASAL SINUSES: Unremarkable. MASTOID AIR CELLS: Unremarkable. VASCULATURE: Unremarkable. BONES/ SOFT TISSUES: Unremarkable. OTHER: None. IMPRESSION: 1. No acute intracranial process identified. 2. Mild chronic microvascular ischemic changes. 3. Empty Sella Syndrome, commonly an incidental finding of no clinical significance but there exists a well-established association with idiopathic intracranial hypertension. Correlate clinically. ATED BY: LESLEY CARRASQUILLO MD DICTATED DATE/TIME: 08/05/24 1398 Condition at Discharge: Good Final Diagnosis/Problems List # Probable TIA # Musculoskeletal pain - noncardiac # Ruled out acute coronary syndrome # Hypertension # Dyslipidemia # Empty sella syndrome Discharge Disposition: Home SNF Discharge Will this Physician continue t: No Discharge Instruct/Medications Diet: Cardiac 2g Na,low cholest Activity: No Restrictions, As Tolerated Follow Up/Referral: PCP Neurology Cardiology Medications: Continue with DAPT (ASA and Clopidogrel) for at least 28 days, then continue with ASA alone Discharge Statement: "Patient was advised to return to the ER or call 911 if any headaches, dizziness, shortness of breath, chest pain, abdominal pain, bleeding, fevers, or worsening of medical condition. Patient was counseled about treatment plan, medications, possible side effects, patientverbalized understanding. All questions were answered to the best of my ability. This discharge took greater then 30 minutes in planning, reviewing documentation, counseling the patient, and discussing with other team members." ASSESSMENT ASSESSMENT Assessment COREY LEON RESIDENT Aug 06, 2024 19:22
--- NOTE | 2024-08-07 21:00 | DVHSR ---
APPROVED REPORT EXAM: Two-dimensional and M-mode echocardiogram with Doppler and color Doppler. Blood Pressure: 138/81 mmHg INDICATION TIA RISK FACTORS Height: 60, Weight: 148 DIMENSIONS LVDd4.0 (3.8-5.7cm)LA (2D)3.5 (1.9-4.0cm)Aortic Root2.9 (2.0-3.7cm) LVDs2.7 (2.5-4.0cm)LA (MM) (1.9-4.0cm)Aortic Cusp Exc1.7 (1.5-2.0cm) EF (%) 62.0 (55-70%)Rt. Atrium (1.9-4.0cm)Asc. Aorta2.7 cm IVSd1.0 (0.7-1.1cm)RV (D) (1.8-2.4cm) PWd1.0 (0.7-1.1cm) Mitral Valve MitralMitral Stenosis E wave0.65m/sMV Mean GR.mmHg A wave0.72m/sMV Peak GR.mmHg E/A ratio0.92D MVAcm2 DECEL [id number] 1/2 [id number] IVRTmsDop MVA3.92cm2 Aortic Valve Aortic ValveAortic Stenosis V10.90m/Sixto Mean GR.3mmHg V21.21m/Sixto Peak GR.6mmHg LVOT Diameter1.8 (1.8-2.4cm)Doppler AVA1.89cm2 Pulmonic Valve V20.79m/s Other Information Technically limited study due to body habitus. Conclusion Technically good study. Sinus rhythm. Normal chamber sizes. Normal valves. EF of 55% with normal RV function. Unremarkable doppler. No PE masses or vegetations.
== END 2024-08-06 15:37 | disposition home or self-care (01) | DRG 47 ==
LOC: ER 12:03 → OVERFLOW 15:01 → TELE-WESTW 17:03
PROVIDERS: ADMIT Student in an Organized Health Care Education/Training Program; ATTEND Student in an Organized Health Care Education/Training Program
DX: G45.9 Transient cerebral ischemic attack, unspecified (principal); E23.6 Other disorders of pituitary gland; E78.5 Hyperlipidemia, unspecified; I10 Essential (primary) hypertension; Z90.710 Acquired absence of both cervix and uterus; Z79.02 Long term (current) use of antithrombotics/antiplatelets; Z86.73 Personal history of transient ischemic attack (TIA), and cerebral infarction without residual deficits; Z79.899 Other long term (current) drug therapy
CPT/HCPCS: 36415; 70450; 70496; 70498; 70551; 71045; 80048; 80053; 80061; 81001; 82306; 82607; 82962; 83036; 83735; 83880; 84100; 84443; 84484; 85025; 85610; 85730; 93005; 93306; 93886; 97110; 97116; 97163; 97530; 99291; G0378; J3480